=== PATIENT | male | born 1995 | race Asian ===

== ENCOUNTER 2017-02-13 14:59 | Emergency (ER) | payer OTHER ==
[2017-02-13] MEDS ORDERED: CLARITIN PO (15:03)
[2017-02-13] MEDS ORDERED: FLONASE ALLERG9.9 ML (15:03)
== END 2017-02-13 17:20 ==
LOC: EDMED 14:59
DX: S16.1XXA Strain of muscle, fascia and tendon at neck level, initial encounter (principal); S60.221A Contusion of right hand, initial encounter; V49.60XA Unspecified car occupant injured in collision with unspecified motor vehicles in traffic accident, initial encounter; Y92.410 Unspecified street and highway as the place of occurrence of the external cause